=== PATIENT | male | born 1955 ===

== ENCOUNTER 2023-09-30 08:43 | Outpatient (REF) | payer OTHER, SELFPAY ==
[2023-09-30 10:07] LABS: Basophils Percent Auto 0.2 % (0-2); Eosinophils Absolute Auto 0.3 X10*3/uL (0.0-0.4); Hematocrit 48.6 % (42.0-52.0); Hemoglobin 15.3 g/dl (14.0-18.0); Imm Gran Abs Auto 0.08 X10*3/uL (0.00-0.03); Imm Gran Pct Auto 0.5 % (0.0-0.4); Lymphocytes Absolute Auto 2.6 X10*3/uL (1.2-4.9); Lymphocytes Percent Auto 15.4 % (20-40); MANUAL DIFF FLAG SCAN; Mean Corpuscular HGB Conc 31.5 g/dl (31.0-36.0); Mean Corpuscular Volume 85.7 fL (80.0-98.0); Mean Platelet Volume 10.6 fL (9.4-12.4); Monocytes Absolute Auto 1.5 X10*3/uL (0.1-1.2); Neutrophils Absolute Auto 12.4 x10*3/uL (2.0-8.3); Neutrophils Percent Auto 72.9 % (45-73); Platelet Count 222 X10*3/uL (160-400); Red Blood Count 5.67 X10*6/uL (4.60-5.80); Red Cell Distribution Width 14.5 % (11.0-16.0); SCAN SMEAR FLAG 1; White Blood Count 17.1 X10*3/uL (4.8-10.8)
[2023-09-30 10:53] LABS: Erythrocyte Sedimentation Rate 2 MM/HR (0-15)
[2023-09-30 11:10] LABS: Alanine Aminotransferase 27 U/L (0-40); Albumin Level 3.8 g/dL (3.5-5.0); Alkaline Phosphatase 49 U/L (39-117); Anion Gap 9 (12-20); Aspartate Amino Transferase 13 U/L (5-37); Bilirubin Total 0.3 mg/dL (0.0-1.0); Blood Urea Nitrogen 18 mg/dL (9-16); C Reactive Protein 0.48 mg/dL (< or = 0.50); Calcium 8.8 mg/dL (8.4-10.2); Carbon Dioxide 29 mmol/L (22-29); Chloride 108 mmol/L (96-108); Estimated Glomerular Filt Rate > 60; Glucose Random 91 mg/dL (60-115); Potassium 3.4 mmol/L (3.3-5.1); Sodium 143 mmol/L (135-145); Total Protein 6.8 g/dL (6.5-8.0)
[2023-09-30 11:12] LABS: Rheumatoid Factor < 13.0 IU/mL (<15.0)
[2023-09-30 11:51] LABS: SLIDE REVIEW VERIFIED
[2023-10-01 14:28] LABS: Cyclic Citrullinated Peptide <16 UNITS
[2023-10-02 20:27] LABS: Anti Nuclear Antibody Screen NEGATIVE (NEGATIVE)
[2023-10-04 14:18] LABS: Myeloperoxidase Antibody <1.0 AI; Proteinase 3 PR3 Antibodies <1.0 AI
== END 2023-09-30 08:44 | disposition home or self-care (01) ==
LOC: HO.LAB 08:43
PROVIDERS: Visit Provider Student in an Organized Health Care Education/Training Program
DX: M06.9 Rheumatoid arthritis, unspecified (principal); I77.6 Arteritis, unspecified; R51.9 Headache, unspecified
CPT/HCPCS: 36415; 80053; 85025; 85652; 86021; 86038; 86140; 86200; 86431

== ENCOUNTER 2023-09-30 08:43 | Outpatient (AMB) | payer OTHER, SELFPAY ==
[2023-09-30 08:48] VITALS: BP 124/68; PULSE 63; O2SAT 97; BMI 33.2
--- NOTE | 2023-09-30 08:48 | MHC.OFFVIS ---
Vital Signs 09/30/23 08:48 Height 6 ft Weight 244 lb 11.41 oz BMI 33.2 BP 124/68 Blood Pressure Location Rt brachial Position Sitting Pulse 63 Pulse Source Pulse Oximeter Pulse Oximetry (%) 97 Oxygen Delivery Method Room Air Intake Visit Reasons: Rt temporal headache ? [facility] Intake Note: New patient presents today for consult, referred by PCP for right sided headache and neck pain. Symptoms started approx a month ago, but pt states they went away 1 week later Saw PCP and pulm specialist at [facility] doesn't recall name. 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 The condition started in mid August. When he woke up with abrupt onset of right temporal headache, there was no associated fever, generalized stiffness, blurry vision, there was no jaw or tongue claudication. No cramping of his hands or feet with activity. headache would not go away with Tylenol and ibuprofen so he saw his PCP after 3 days. His inflammation markers were checked and they were mildly elevated. He was prescribed prednisone 40 mg x 5 days and it resolved in 1 day. He was referred to see a vascular surgeon to be evaluated for a biopsy but his symptoms had resolved and biopsy was deferred at that time. States that he had 1 other episode of headaches since then and lasted 1 day and went away on its own. He denies any other symptoms such as swollen joints, fevers, weight loss. He is unaware of any family history of an autoimmune rheumatic disease. He states that he has history of asthma and it was fairly well controlled on Advair until it was denied by his insurance company in June and he has been getting repeated asthma attacks. Most recent was last week when he presented to the emergency room and was discharged on prednisone which he finished yesterday. [facility] Medical History (Updated 09/30/23 @ 09:27 by Nam Ervin MD) GERD (gastroesophageal reflux disease) Hyperlipidemia Hypertension Prostate cancer BPH (benign prostatic hyperplasia) Asthma Type 2 diabetes mellitus without complication, without long-term current use of insulin Neck pain on right side Elevated C-reactive protein (CRP) Elevated sed rate Right sided temporal headache Surgical History No history of previous surgery Family History Mother Alcohol abuse Father Hypertension Social History Household Members Other:: Son Alcohol intake: current Alcohol intake frequency: holidays/special occasions only Patient Tobacco Use Status: Never used Tobacco Current occupational status: retired Review of Systems Const Denies fatigue, Denies fever(s), Reports headache(s), Reports weight gain and Denies weight loss Eyes Denies blurry vision and Denies change in vision ENT Reports headache(s) Card Reports dyspnea on exertion Resp Reports dyspnea on exertion and Reports wheezing Musc Denies arthralgias, Denies joint swelling and Denies stiffness Neuro Reports headache(s) Endo Denies fatigue Aller/Immun Reports wheezing Physical Exam Vital Signs: Last Vital Signs Pulse 63 09/30/23 08:48 BP 124/68 09/30/23 08:48 Pulse Ox 97 09/30/23 08:48 Oxygen Delivery Method Room Air 09/30/23 08:48 BMI result Body Mass Index 33.2 Const General: cooperative, healthy appearing and comfortable Nutritional Appearance: average body habitus Orientation/consciousness: patient oriented x3 Limitations: no limitations HEENT Other: Minimal right temporal area tenderness. But bilateral palpable and equal superficial temporal arteries No maxillary , ethmoid or frontal sinus tenderness No jaw pain with opening and closing No TMJ tenderness Head: Yes normocephalic and Yes atraumatic Mouth: moist mucous membranes Resp Effort & Inspection: normal respiratory effort and able to speak in complete sentences Auscultation: clear to auscultation bilaterally Cardio Rate: regular rate Rhythm: regular rhythm Skin General skin exam: no rashes or lesions noted Neuro General: patient oriented x3 Extrem Other: No active synovitis Normal range of motion of hands, wrists, elbows and shoulders Assessment & Plan Assessment & Plan (1) Right sided temporal headache: Code(s): R51.9 - Headache, unspecified Category: Medical Plan: This is a 68-year-old male who presents for evaluation of abrupt onset right-sided temporal headache with no associated fevers, no vision changes, no PMR type symptoms, inflammatory markers mildly elevated. Symptoms rapidly resolved with prednisone. Patient just completed a prednisone taper for an asthma exacerbation last week. I would like to re-evaluate him when he has not been on steroids for more than a month. Check labs today. Follow-up in 5-6 weeks Plan I spent 47 minutes reviewing patient's chart, evaluating patient, ordering diagnostic workup, counseling patient and documenting in the chart Orders: Orders Rheumatoid Factor Today M06.9 - Rheumatoid arthritis, unspecified ANCA Vasculitides Today I77.6 - Arteritis, unspecified JAKUB Reflex Titer and Pattern Today M06.9 - Rheumatoid arthritis, unspecified Complete Blood Count Auto Diff Today M06.9 - Rheumatoid arthritis, unspecified Comprehensive Met. Panel Today M06.9 - Rheumatoid arthritis, unspecified C Reactive Protein Today M06.9 - Rheumatoid arthritis, unspecified Erythrocyte Sedimentation Rate Today M06.9 - Rheumatoid arthritis, unspecified Cyclic Citrullinated Peptide Today M06.9 - Rheumatoid arthritis, unspecified Coding Level of Care Code New Pt Level 4 (72138) Diagnoses Right sided temporal headache R51.9
== END 2023-09-30 09:20 | disposition home or self-care (01) ==
PROVIDERS: PCP Physician Assistant; Visit Provider Student in an Organized Health Care Education/Training Program
DX: R51.9 Headache, unspecified (principal)
CPT/HCPCS: 99204

== ENCOUNTER 2023-11-09 08:19 | Outpatient (AMB) | payer OTHER, SELFPAY ==
[2023-11-09 08:23] VITALS: BP 140/72; PULSE 85; O2SAT 96; BMI 32.3
--- NOTE | 2023-11-09 08:23 | A.OFFVIS_ITS ---
Vital Signs 11/09/23 08:23 Height 6 ft Weight 238 lb 1.588 oz BMI 32.3 BP 140/72 H Blood Pressure Location Rt brachial Position Sitting Pulse 85 Pulse Source Pulse Oximeter Pulse Oximetry (%) 96 Oxygen Delivery Method Room Air Intake Visit Reasons: Headache Intake Note: Pt last seen 09/30/23, presents today for follow up. 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 He states that since last visit 6 weeks ago had a couple of episodes of headaches. Usually in the morning. In the right temporal area, sometimes in the neck and in the periorbital area. He takes 3 Tylenol and the headaches usually resolve in 1-2 hours. He has not had any persistent headache. Has not had any severe headache. He had a couple of episodes of asthma exacerbations that necessitated emergency room visits that was treated with courses of prednisone. He was started on prednisone yesterday again for an asthma exacerbation. Initial history: This is a 68-year-old male who presents for evaluation of temporal headaches. The condition started in mid August. When he woke up with abrupt onset of right temporal headache, there was no associated fever, generalized stiffness, blurry vision, there was no jaw or tongue claudication. No cramping of his hands or feet with activity. headache would not go away with Tylenol and ibuprofen so he saw his PCP after 3 days. His inflammation markers were checked and they were mildly elevated. He was prescribed prednisone 40 mg x 5 days and it resolved in 1 day. He was referred to see a vascular surgeon to be evaluated for a biopsy but his symptoms had resolved and biopsy was deferred at that time. States that he had 1 other episode of headaches since then and lasted 1 day and went away on its own. He denies any other symptoms such as swollen joints, fevers, weight loss. He is unaware of any family history of an autoimmune rheumatic disease. He states that he has history of asthma and it was fairly well controlled on Advair until it was denied by his insurance company in June and he has been getting repeated asthma attacks. Most recent was last week when he presented to the emergency room and was discharged on prednisone which he finished yesterday. [facility] Medical History GERD (gastroesophageal reflux disease) Hyperlipidemia Hypertension Prostate cancer BPH (benign prostatic hyperplasia) Asthma Type 2 diabetes mellitus without complication, without long-term current use of insulin Neck pain on right side Elevated C-reactive protein (CRP) Elevated sed rate Right sided temporal headache Surgical History No history of previous surgery Family History Mother Alcohol abuse Father Hypertension Social History Household Members Other:: Son Alcohol intake: current Alcohol intake frequency: holidays/special occasions only Patient Tobacco Use Status: Never used Tobacco Current occupational status: retired Review of Systems Const Denies fatigue, Denies fever(s), Reports headache(s), Reports weight gain and Denies weight loss Eyes Denies blurry vision and Denies change in vision ENT Reports headache(s) Card Reports dyspnea on exertion Resp Reports dyspnea on exertion and Reports wheezing Musc Denies arthralgias, Denies joint swelling and Denies stiffness Neuro Reports headache(s) Endo Denies fatigue Aller/Immun Reports wheezing Physical Exam Vital Signs: Last Vital Signs Pulse 85 11/09/23 08:23 BP 140/72 H 11/09/23 08:23 Pulse Ox 96 11/09/23 08:23 Oxygen Delivery Method Room Air 11/09/23 08:23 BMI result Body Mass Index 32.3 Const General: cooperative, healthy appearing and comfortable Nutritional Appearance: average body habitus Orientation/consciousness: patient oriented x3 Limitations: no limitations HEENT Other: Minimal right temporal area tenderness. But bilateral palpable and equal superficial temporal arteries No maxillary , ethmoid or frontal sinus tenderness No jaw pain with opening and closing No TMJ tenderness Head: Yes normocephalic and Yes atraumatic Mouth: moist mucous membranes Resp Effort & Inspection: normal respiratory effort and able to speak in complete sentences Skin General skin exam: no rashes or lesions noted Neuro General: patient oriented x3 Extrem Other: No active synovitis Normal range of motion of hands, wrists, elbows and shoulders Assessment & Plan Assessment & Plan (1) Right sided temporal headache: Code(s): R51.9 - Headache, unspecified Category: Medical Plan: This is a 68-year-old male who presents for evaluation of abrupt onset right- sided temporal headache with no associated fevers, no vision changes, no PMR type symptoms, inflammatory markers mildly elevated. Over the last month, patient had a couple of episodes of headaches that rapidly resolved with Tylenol. His repeat inflammatory markers are normal. Very low suspicion for temporal arteritis at this point. I suggest neurology evaluation Discussed symptoms and signs that are suggestive of temporal arteritis. Advised patient to follow-up with me as needed Plan I spent 17 minutes reviewing patient's chart, evaluating patient, counseling patient and documenting in the chart Coding Level of Care Code Est Pt Level 3 (83480) Diagnoses Right sided temporal headache R51.9
== END 2023-11-09 08:39 | disposition home or self-care (01) ==
LOC: HO.RHE 08:19
PROVIDERS: PCP Physician Assistant; Visit Provider Student in an Organized Health Care Education/Training Program
DX: R51.9 Headache, unspecified (principal)
CPT/HCPCS: 99213

== ENCOUNTER → 2023-11-09 08:19 | Outpatient (BNVA) | payer OTHER, SELFPAY | PROVIDERS: PCP Physician Assistant; Visit Provider Student in an Organized Health Care Education/Training Program ==